=== PATIENT | male | born 1985 | race Caucasian/White ===

== ENCOUNTER → 2018-01-17 | Outpatient (CLI) | payer OTHER ==
--- NOTE | 2018-01-17 17:25 | 2DMMODE ---
[place] [address] 2 D/M-MODE ECHOCARDIOGRAM Name: CONRAD VEGA Room: [facility]#: [id number] Admission: 01/17/18 Attend Phys: Anshu Sánchze MD Discharge: Date of : 83 Date of Service: 01/17/18 1725 Report #: [id number] THIS REPORT FOR: //name// APPROVED REPORT Study performed: 01/17/2018 12:37:36 EXAM: Comprehensive 2D, Doppler, and color-flow Echocardiogram Patient Location: Out-Patient Status: routine BSA: 2.39 HR: 84 bpm BP: 130/95 mmHg Other Information Study Quality: Good Indications Palpitations 2D Dimensions IVSd: 11.54 (7-11mm) LVOT Diam: 20.58 (18-24mm) LVDd: 46.52 mm PWd: 10.39 (7-11mm) Ascending Ao: 30.38 (22-36mm) LVDs: 33.25 (25-40mm) Aortic Root: 29.94 mm Volumes Left Atrial Volume (Systole) LA ESV Index: 14.70 mL/m2 Aortic Valve AoV Peak Joshua.: 1.12 m/s AO Peak Gr.: 5.06 mmHg LVOT Max P.61 mmHg AO Mean Gr.: 2.79 mmHg LVOT Mean P.10 mmHg LVOT Max V: 1.07 m/s AO V2 VTI: 21.34 cm LVOT Mean V: 0.65 m/s JESSICA (VTI): 3.38 cm2 LVOT V1 VTI: 21.66 cm Mitral Valve E/A Ratio: 1.31 MV Decel. Time: 138.82 ms MV E Max Joshua.: 0.83 m/s MV PHT: 40.26 [place] [address] 2 D/M-MODE ECHOCARDIOGRAM Name: CONRAD VEGA Room: [facility]#: [id number] Admission: 01/17/18 Attend Phys: Anshu Sánchez MD Discharge: Date of : 83 Date of Service: 01/17/18 1725 Report #: [id number] MVA (PHT): 5.46 cm2 TDI E/Lateral E': 5.53 E/Medial E': 6.38 Medial E' Joshua.: 0.13 m/s Lateral E' Joshua.: 0.15 m/s Pulmonary Valve PV Peak Joshua.: 1.05 m/s PV Peak Gr.: 4.42 mmHg Left Ventricle The left ventricle is normal size. There is normal LV segmental wall motion. There is normal left ventricular wall thickness. Left ventricular systolic function is normal. The left ventricular ejection fraction is within the normal range. LVEF is 55-60%. The left ventricular diastolic function is normal. Right Ventricle The right ventricle is normal size. The right ventricular systolic function is normal. Atria The left atrium size is normal. The right atrium size is normal. Aortic Valve The aortic valve is normal in structure. No aortic regurgitation is present. There is no aortic valvular stenosis. Mitral Valve The mitral valve is normal in structure. There is no mitral valve regurgitation noted. No evidence of mitral valve stenosis. Tricuspid Valve The tricuspid valve is normal in structure. There is no tricuspid valve regurgitation noted. Pulmonic Valve The pulmonary valve is normal in structure. There is no pulmonic valvular regurgitation. Great Vessels The aortic root is normal in size. IVC is normal in size and collapses >50% with inspiration[place] [address] 2 D/M-MODE ECHOCARDIOGRAM Name: CONRAD VEGA Room: [facility]#: [id number] Admission: 01/17/18 Attend Phys: Anshu Sánchez MD Discharge: Date of : 83 Date of Service: 01/17/18 1725 Report #: [id number] There is no pericardial effusion. <Conclusion> LVEF is 55-60%. There is normal LV segmental wall motion. There is no aortic valvular stenosis. No aortic regurgitation is present. There is no mitral valve regurgitation noted. The mitral valve is normal in structure. <ELECTRONICALLY SIGNED> By: Matias Hernandez MD, FACC 01/17/181724 24 24 Matias Hernandez MD, FACC /INF
== END ==
LOC: M.CRD 12:34
DX: I49.9 Cardiac arrhythmia, unspecified (principal)

== ENCOUNTER → 2019-02-13 | Outpatient (CLI) | payer OTHER ==
[2019-02-13 12:37] LABS: ABSOLUTE BASOPHILS 0.1 thou/uL (0.0-0.2); ABSOLUTE EOSINOPHILS 0.1 thou/uL (0.0-0.7); ABSOLUTE LYMPHOCYTES 2.1 thou/uL (0.8-5.3); ABSOLUTE MONOCYTES 0.5 thou/uL (0.0-1.2); ABSOLUTE NEUTROPHILS 3.6 thou/uL (1.6-8.1); BASOPHILS 0.9 %; EOSINOPHILS 1.7 %; HEMATOCRIT 45.8 % (42.0-52.0); HEMOGLOBIN 15.7 gm/dL (14.0-18.0); LYMPHOCYTES 32.8 %; MCHC 34.3 g/dL (28.0-37.0); MCV 87.3 fL (80.0-100.0); MONOCYTES 8.1 %; MPV 8.5 fl. (7.2-11.1); NUCLEATED RBCS 0 /100WBC; PLATELET COUNT* 244 thou/uL (150-400); POLYS 56.5 %; RBC 5.25 mil/uL (4.50-6.00); RDW-CV 12.7 % (10.5-14.5); WBC 6.4 thou/uL (4.0-11.0)
[2019-02-13 12:49] LABS: ALBUMIN 3.7 g/dL (3.4-5.0); ALKALINE PHOSPHATASE 75 U/L (46-116); ANION GAP 7 mmol/L (7-16); BUN 18 mg/dL (7-18); CALCIUM 8.9 mg/dL (8.5-10.1); CHLORIDE 103 mmol/L (98-107); CHOLESTEROL 213 mg/dL (<200); CO2 30 mmol/L (21-32); CREATININE 1.1 mg/dL (0.6-1.3); GLUCOSE 92 mg/dL (70-99); HDL CHOLESTEROL 43 mg/dL (>40); LDL CHOLESTEROL 157 mg/dL (<100); POTASSIUM 4.5 mmol/L (3.5-5.1); SERUM ASSESSMENT Clear; SGOT 21 U/L (15-37); SGPT 31 U/L (30-65); SODIUM 140 mmol/L (136-145); TOTAL BILIRUBIN 0.8 mg/dL (<0.1-1.0); TOTAL PROTEIN 7.2 g/dL (6.4-8.2); TRIGLYCERIDE 69 mg/dL (<150); VLDL 14 mg/dL (<40)
== END ==
LOC: M.LAB 12:24
PROVIDERS: Family Medicine
DX: Z00.00 Encounter for general adult medical examination without abnormal findings (principal)